=== PATIENT | male | born 1960 | race Caucasian/White ===

== ENCOUNTER 2018-07-24 14:16 | Emergency (ER) | payer BC | END 2018-07-24 14:50 | disposition home or self-care (01) | LOC: E/R 14:16 | DX: F41.1 Generalized anxiety disorder (principal); I16.0 Hypertensive urgency | CPT/HCPCS: 99282 ==

== ENCOUNTER → 2018-08-13 | Emergency (ER) | payer BC ==
[2018-08-13] MEDS: LORAZEPAM 1 MG TAB PO (06:46)
== END | disposition home or self-care (01) ==
LOC: E/R 05:48
DX: F41.9 Anxiety disorder, unspecified (principal); I10 Essential (primary) hypertension
CPT/HCPCS: 99283